=== PATIENT | female | born 1965 ===

== ENCOUNTER 2019-06-10 05:10 | Day surgery (SDC) | payer OTHER ==
[2019-06-10] MEDS ORDERED: PERCOCET 5-3251 EACH PO (11:13)
== END 2019-06-10 13:38 | disposition home or self-care (01) ==
LOC: CIR.AMB 05:10
DX: C73 Malignant neoplasm of thyroid gland (principal)

== ENCOUNTER 2019-08-02 14:27 | Emergency (ER) | payer OTHER ==
[~2019-08-02] VITALS: Ht 175.3 cm; Wt 68.0 kg
[~2019-08-02 14:27] MED LIST: PERCOCET 5-3251 EACH PO
== END 2019-08-02 19:06 | disposition home or self-care (01) ==
LOC: ER 14:27
DX: N39.0 Urinary tract infection, site not specified (principal)

== ENCOUNTER 2021-03-17 10:25 | Emergency (ER) | payer OTHER ==
[~2021-03-17] VITALS: Ht 175.3 cm; Wt 69.4 kg
== END 2021-03-17 15:54 | disposition home or self-care (01) ==
LOC: ER 10:25
DX: K57.90 Diverticulosis of intestine, part unspecified, without perforation or abscess without bleeding (principal); R30.0 Dysuria

== ENCOUNTER 2021-05-08 15:57 | Outpatient (CLI) | payer OTHER | END 2021-05-08 15:58 | disposition home or self-care (01) | LOC: LAB 15:57 | PROVIDERS: ATTEND Urology | DX: N30.00 Acute cystitis without hematuria (principal) ==